=== PATIENT | male | born 1990 ===

== ENCOUNTER 2018-01-23 00:16 | Emergency (ER) | payer SELFPAY ==
[2018-01-23] MEDS ORDERED: IBUPROFEN 600 MG TAB PO ONE (01:11)
--- NOTE | 2018-01-23 11:16 | XR ---
EXAMINATION TYPE: XR foot complete RT DATE OF EXAM: 01/23/2018 CLINICAL HISTORY: pain TECHNIQUE: Frontal, lateral and oblique images of the right foot are obtained. COMPARISON: None. FINDINGS: Nondisplaced fracture at the base of the fifth metatarsal. The joint spaces appear within normal limits. The overlying soft tissue appears unremarkable. IMPRESSION: Nondisplaced fracture at the base of the fifth metatarsal. ICD 10 closed FRACTURE, INITIAL EVALUATION
== END 2018-01-23 01:34 | disposition home or self-care (01) ==
LOC: EC 00:16
DX: S92.351A Displaced fracture of fifth metatarsal bone, right foot, initial encounter for closed fracture (principal); X58.XXXA Exposure to other specified factors, initial encounter; Y93.67 Activity, basketball
CPT/HCPCS: 29515; 99283